=== PATIENT | male | born 1965 | race Caucasian/White ===

== ENCOUNTER 2017-12-28 09:35 | Observation (INO) ==
--- NOTE | 2017-12-28 09:47 | Emergency Department Note ---
Disposition Clinical Impression: Fatigue, Chest pain, Dyspnea, History of atrial fibrillation Disposition: Admitted As Inpatient Condition: Good General Adult HPI - General Chief complaint: ED Chest Pain Stated complaint: CP/SOB Time Seen by Provider: 12/28/17 09:38 - History of Present Illness Pain Scale: 1 - Related Data Home Medications Medication Instructions Recorded Confirmed Albuterol Sulfate [Ventolin Hfa] 2 puff IH Q4-6H PRN 12/28/17 12/28/17 Aspirin [Adult Aspirin] 81 mg PO DAILY 12/28/17 12/28/17 Cetirizine HCl [All Day Allergy] 10 mg PO DAILY 12/28/17 12/28/17 Ezetimibe [Zetia] 10 mg PO DAILY 12/28/17 12/28/17 FLUoxetine HCl [PROzac] 20 mg PO DAILY 12/28/17 12/28/17 Fenofibrate Nanocrystallized 48 mg PO DAILY 12/28/17 12/28/17 [Tricor] Fluticasone Propionate Nasal 1 spr NS DAILY PRN 12/28/17 12/28/17 [Flonase] Insulin Glargine,Hum.rec.anlog 32 unit SQ HS 12/28/17 12/28/17 [Lantus Solostar] Insulin LISPRO [Humalog] 8 unit SQ TIDWM 12/28/17 12/28/17 Losartan [Cozaar] 25 mg PO DAILY 12/28/17 12/28/17 Metformin HCl [Glucophage] 1,000 mg PO BID 12/28/17 12/28/17 Metoprolol Succinate [Toprol Xl] 25 mg PO BID 12/28/17 12/28/17 Omeprazole [PriLOSEC] 20 mg PO DAILY 12/28/17 12/28/17 Propafenone HCl [Rythmol Sr] 225 mg PO BID 12/28/17 12/28/17 RX: Gabapentin [Neurontin] 300 mg PO TID 12/28/17 12/28/17 Allergies Allergy/AdvReac Type Severity Reaction Status Date / Time No Known Allergies Allergy Verified 12/28/17 10:56 Course Vital Signs Temperature 98.5 F 12/28/17 09:37 Pulse Rate 59 12/28/17 09:37 Respiratory Rate 17 12/28/17 09:37 Blood Pressure 219/106 12/28/17 09:37 O2 Sat by Pulse Oximetry 97 12/28/17 09:37 Temperature 98.4 F 12/28/17 14:44 Pulse Rate 58 12/28/17 14:44 Respiratory Rate 15 12/28/17 14:44 Blood Pressure 163/74 12/28/17 14:44 O2 Sat by Pulse Oximetry 97 12/28/17 14:44 Oxygen Delivery Oxygen Delivery Room Air Medical Decision Making - Lab Data Result diagrams: 12/28/17 10:13 12/28/17 11:31 Lab Results 12/28/17 12/28/17 12/28/17 Range/Units 10:13 10:13 10:13 WBC 5.9 (4.3-11.1) K/mcL RBC 4.44 (4.19-5.50) M/mcL Hgb 13.9 (12.9-16.9) g/dL Hct 41.3 (37.5-50.1) % MCV 93.0 (83.0-100.0) fL MCH 31.3 (28.0-33.3) pg MCHC 33.7 (31.6-35.5) g/dL RDW 12.9 (11.5-14.5) % Plt Count 145 (140-400) K/mcL MPV 12.9 H (9.4-12.4) fL Immature Gran % 0.5 (0-4) % Seg Neutrophils % 49.3 % Lymphocytes % 38.4 % Monocytes % 8.2 % Eosinophils % 2.9 % Basophils % 0.7 % Neutrophils # 2.9 (1.6-8.9) K/mcL Lymphocytes # 2.3 (0.6-4.6) K/mcL Monocytes # 0.5 (0.0-1.3) K/mcL Eosinophils # 0.2 (0.0-0.6) K/mcL Basophils # 0.0 (0.0-0.2) K/mcL PT 11.6 (9.4-12.1) Seconds INR 1.0 APTT 28.5 (26.0-36.0) Seconds Sodium Cancelled Potassium Cancelled Chloride Cancelled Carbon Dioxide Cancelled BUN Cancelled Creatinine Cancelled Est GFR ( Amer) Cancelled Est GFR (Non-Af Amer) Cancelled BUN/Creatinine Ratio Cancelled Glucose Cancelled Est Mean Plasma Glucose mg/dl Hemoglobin A1c ( - 5.6) % Calculated Osmolality Cancelled Calcium Cancelled Magnesium Cancelled Total Bilirubin Cancelled AST Cancelled ALT Cancelled Alkaline Phosphatase Cancelled Troponin I < 0.03 (< 0.04) ng/mL B-Natriuretic Peptide (Less than 100) pg/mL Serum Total Protein Cancelled Albumin Cancelled Globulin Cancelled Albumin/Globulin Ratio Cancelled TSH Cancelled Specimen Rejected 12/28/17 12/28/17 12/28/17 Range/Units 10:13 10:13 10:13 WBC (4.3-11.1) K/mcL RBC (4.19-5.50) M/mcL Hgb (12.9-16.9) g/dL Hct (37.5-50.1) % MCV (83.0-100.0) fL MCH (28.0-33.3) pg MCHC (31.6-35.5) g/dL RDW (11.5-14.5) % Plt Count (140-400) K/mcL MPV (9.4-12.4) fL Immature Gran % (0-4) % Seg Neutrophils % % Lymphocytes % % Monocytes % % Eosinophils % % Basophils % % Neutrophils # (1.6-8.9) K/mcL Lymphocytes # (0.6-4.6) K/mcL Monocytes # (0.0-1.3) K/mcL Eosinophils # (0.0-0.6) K/mcL Basophils # (0.0-0.2) K/mcL PT (9.4-12.1) Seconds INR APTT (26.0-36.0) Seconds Sodium Potassium Chloride Carbon Dioxide BUN Creatinine Est GFR ( Amer) Est GFR (Non-Af Amer) BUN/Creatinine Ratio Glucose Est Mean Plasma Glucose 128 mg/dl Hemoglobin A1c 6.1 H ( - 5.6) % Calculated Osmolality Calcium Magnesium Total Bilirubin AST ALT Alkaline Phosphatase Troponin I (< 0.04) ng/mL B-Natriuretic Peptide 286 H (Less than 100) pg/mL Serum Total Protein Albumin Globulin Albumin/Globulin Ratio TSH Specimen Rejected Hemolyzed 12/28/17 Range/Units 11:31 WBC (4.3-11.1) K/mcL RBC (4.19-5.50) M/mcL Hgb (12.9-16.9) g/dL Hct (37.5-50.1) % MCV (83.0-100.0) fL MCH (28.0-33.3) pg MCHC (31.6-35.5) g/dL RDW (11.5-14.5) % Plt Count (140-400) K/mcL MPV (9.4-12.4) fL Immature Gran % (0-4) % Seg Neutrophils % % Lymphocytes % % Monocytes % % Eosinophils % % Basophils % % Neutrophils # (1.6-8.9) K/mcL Lymphocytes # (0.6-4.6) K/mcL Monocytes # (0.0-1.3) K/mcL Eosinophils # (0.0-0.6) K/mcL Basophils # (0.0-0.2) K/mcL PT (9.4-12.1) Seconds INR APTT (26.0-36.0) Seconds Sodium 142 Potassium 4.3 Chloride 111 H Carbon Dioxide 23 BUN 15 Creatinine 1.07 Est GFR ( Amer) > 60 Est GFR (Non-Af Amer) > 60 BUN/Creatinine Ratio 14 Glucose 93 Est Mean Plasma Glucose mg/dl Hemoglobin A1c ( - 5.6) % Calculated Osmolality 295 Calcium 9.3 Magnesium 1.9 Total Bilirubin 0.3 AST 20 ALT 18 Alkaline Phosphatase 64 Troponin I (< 0.04) ng/mL B-Natriuretic Peptide (Less than 100) pg/mL Serum Total Protein 6.0 L Albumin 3.8 Globulin 2.2 L Albumin/Globulin Ratio 1.7 TSH 2.275 Specimen Rejected Attestation Statement - Attestation Attestation: I examined this patient and my medical decision-making was reviewed with the Resident Physician. I agree with the documented findings, disposition and treatment plan as described except to the extent set forth below. [id number] time provided Patient able to ambulate from triage without limitation. He is hypertensive. Otherwise appears in no acute distress. Complaints of intermittent chest discomfort and dyspnea.
--- NOTE | 2017-12-28 09:53 | Emergency Department Note ---
Disposition Clinical Impression: History of atrial fibrillation Fatigue Qualifiers: Fatigue type: unspecified Qualified Code(s): R53.83 - Other fatigue Chest pain Qualifiers: Chest pain type: unspecified Qualified Code(s): R07.9 - Chest pain, unspecified Dyspnea Qualifiers: Dyspnea type: unspecified Qualified Code(s): R06.00 - Dyspnea, unspecified Disposition: Admitted As Inpatient Condition: Good Forms: ED Satisfaction Letter Time of Disposition: 12:21 Chest Pain HPI - General Chief Complaint: ED Chest Pain Stated Complaint: CP/SOB Time Seen by Provider: 12/28/17 09:38 Source: patient Mode of arrival: ambulatory Limitations: no limitations Vital Signs Reviewed: Yes Nursing Notes Reviewed: Yes - History of Present Illness HPI Narrative: Patient is a 52-year-old male with past medical history of hypertension, hyperlipidemia, diabetes, 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 He is currently on metoprolol, losartan, daily baby aspirin, propafenone for rate and rhythm control. He states that he recently moved here from [facility]. He just started following with Dr. Stuart with cardiology. He states that he has a referral and placed to Dr. Jarvis for further A. fib management. He states that he was switched from valsartan to losartan this summer due to recall. He was also increased on his metoprolol on December 14 for further rate control. He states that for the past 4 days, he has felt overall fatigued, he also had chest pain last night that was occurring while he was exerting himself. Lasted for several minutes and then went away. Described as a constant left- sided chest aching with intermittent sharp pains that radiated to his left upper extremity. He also had shortness of breath during that time and continues to have shortness of breath. No additional chest discomfort since the incident last night. Denies any other associated nausea, vomiting, fevers, diarrhea, abdominal pain. 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 He does admit to some mild lower extremity edema but no calf pain, no redness, no long car rides or recent surgeries, no history of PE. Severity scale (1-10): 1 - Related Data Home Medications Medication Instructions Recorded Confirmed Albuterol Sulfate [Ventolin Hfa] 2 puff IH Q4-6H PRN 12/28/17 12/28/17 Aspirin [Adult Aspirin] 81 mg PO DAILY 12/28/17 12/28/17 Cetirizine HCl [All Day Allergy] 10 mg PO DAILY 12/28/17 12/28/17 Ezetimibe [Zetia] 10 mg PO DAILY 12/28/17 12/28/17 FLUoxetine HCl [PROzac] 20 mg PO DAILY 12/28/17 12/28/17 Fenofibrate Nanocrystallized 48 mg PO DAILY 12/28/17 12/28/17 [Tricor] Fluticasone Propionate Nasal 1 spr NS DAILY PRN 12/28/17 12/28/17 [Flonase] Gabapentin [Neurontin] 300 mg PO TID 12/28/17 12/28/17 Insulin Glargine,Hum.rec.anlog 32 unit SQ HS 12/28/17 12/28/17 [Lantus Solostar] Insulin LISPRO [Humalog] 8 unit SQ TIDWM 12/28/17 12/28/17 Losartan [Cozaar] 25 mg PO DAILY 12/28/17 12/28/17 Metformin HCl [Glucophage] 1,000 mg PO BID 12/28/17 12/28/17 Metoprolol Succinate [Toprol Xl] 25 mg PO BID 12/28/17 12/28/17 Omeprazole [PriLOSEC] 20 mg PO DAILY 12/28/17 12/28/17 Propafenone HCl [Rythmol Sr] 225 mg PO BID 12/28/17 12/28/17 Allergies Allergy/AdvReac Type Severity Reaction Status Date / Time No Known Allergies Allergy Verified 12/28/17 10:56 All systems ED: reviewed and negative except as stated. Constitutional: Denies: fever Cardiovascular: Reports: chest pain Respiratory: Reports: dyspnea. Denies: cough, sputum production Gastrointestinal: Denies: abdominal pain, nausea, vomiting, diarrhea Genitourinary: Denies: urgency, dysuria, frequency Integumentary: Denies: rash Neurological: Denies: headache, weakness, numbness, paresthesias Chest Pain PMH - Past Medical History Medical history: Reports: other Physical Exam - General Limitations: no limitations General appearance: alert, in no apparent distress - Head Head exam: atraumatic, normocephalic, normal inspection - Eye Eye exam: Present: normal appearance, PERRL, EOMI - ENT ENT exam: normal exam, normal oropharynx, mucous membranes moist - Neck Neck exam: Present: normal inspection, full ROM, trachea midline - Chest Chest inspection: Present: normal inspection, symmetric chest wall rise - Respiratory Respiratory exam: Present: normal lung sounds bilaterally - Cardiovascular Cardiovascular exam: Present: normal rhythm, bradycardia, normal heart sounds - Abdominal Exam Abdominal exam: Present: soft, Non-Tender. Absent: tenderness, distention, guarding, rebound, rigidity - Extremities Exam Extremities exam: Present: normal inspection, full ROM. Absent: tenderness, pedal edema, calf tenderness - Neurological Exam Neurological exam: Present: alert, oriented X3 - Psychiatric Psychiatric exam: Present: normal affect, normal mood - Skin Skin exam: Present: warm, dry, intact, normal color Course Course Narrative: Patient was in sinus bradycardia on exam. Lungs were clear to auscultation. Abdomen soft and nontender. Extremity exam shows no significant swelling, redness, tenderness of calves or popliteal fossa. Assuming EKG and troponin are normal, patient would have a heart score for her with risk factors and age. We will perform EKG, chest x-ray, basic blood work and troponin. We will repeat blood pressure as patient BP was elevated when he first came in, however, a small cuff was used at triage. After workup was completed, we will consult cardiology. Regardless, patient will require admission for further testing such as stress testing, echo, and possible medication adjustment. Patient has not had a stress test for greater than 1 year, has not had a heart catheter in 2 years ( both at outside facility). Of note, patient does also admit that he had a loop recorder within the past year at an outside facility that did show intermittent episodes of A. fib. This may be contributing to his chest pain or shortness of breath symptoms. 12:19 troponin negative. Chest x-ray negative for any acute cardio pulmonary process. No major abnormalities with blood work. EKG shows no acute ST changes. I spoke with technology director about patient's presentation, history, concern for chest pain or shortness of breath, history of recent labile blood pressures and intermittent episodes of A. fib. No further intervention or medications recommended at this time. Dr. Anaya will see the patient as consult. Will admit to hospitalist for further care. Consult to cardio placed. Chest X-Ray 12/28/17 09:53 IMPRESSION: 1. No active pulmonary disease. D/ / Manuel Blanco MD / Manuel Blanco MD Interpreting Provider: Manuel Blanco MD Vital Signs Temperature 98.5 F 12/28/17 09:37 Pulse Rate 59 12/28/17 09:37 Respiratory Rate 17 12/28/17 09:37 Blood Pressure 219/106 12/28/17 09:37 O2 Sat by Pulse Oximetry 97 12/28/17 09:37 Temperature 98.5 F 12/28/17 09:58 Pulse Rate 58 12/28/17 10:28 Respiratory Rate 20 12/28/17 10:28 Blood Pressure 168/79 12/28/17 10:28 O2 Sat by Pulse Oximetry 97 12/28/17 10:28 Oxygen Delivery Oxygen Delivery Room Air Chest Pain - MDM Narrative Medical decision making narrative: Patient was in sinus bradycardia on exam. Lungs were clear to auscultation. Abdomen soft and nontender. Extremity exam shows no significant swelling, redness, tenderness of calves or popliteal fossa. Assuming EKG and troponin are normal, patient would have a heart score for her with risk factors and age. We will perform EKG, chest x-ray, basic blood work and troponin. We will repeat blood pressure as patient BP was elevated when he first came in, however, a smal l cuff was used at triage. After workup was completed, we will consult cardiology. Regardless, patient will require admission for further testing such as stress testing, echo, and possible medication adjustment. Patient has not had a stress test for greater than 1 year, has not had a heart catheter in 2 years ( both at outside facility). Of note, patient does also admit that he had a loop recorder within the past year at an outside facility that did show intermittent episodes of A. fib. This may be contributing to his chest pain or shortness of breath symptoms. 12:19 troponin negative. Chest x-ray negative for any acute cardio pulmonary process. No major abnormalities with blood work. EKG shows no acute ST changes. I spoke with technology director about patient's presentation, history, concern for chest pain or shortness of breath, history of recent labile blood pressures and intermittent episodes of A. fib. No further intervention or medications recommended at this time. Dr. Anaya will see the patient as consult. Will admit to hospitalist for further care. Consult to cardio placed. - Medical Records Medical records reviewed: Yes I reviewed the patient's medical records. - Lab Data Lab results reviewed: Yes I reviewed the patient's lab results. Result diagrams: 12/28/17 10:13 12/28/17 11:31 Lab Results 12/28/17 12/28/17 12/28/17 Range/Units 10:13 10:13 10:13 WBC 5.9 (4.3-11.1) K/mcL RBC 4.44 (4.19-5.50) M/mcL Hgb 13.9 (12.9-16.9) g/dL Hct 41.3 (37.5-50.1) % MCV 93.0 (83.0-100.0) fL MCH 31.3 (28.0-33.3) pg MCHC 33.7 (31.6-35.5) g/dL RDW 12.9 (11.5-14.5) % Plt Count 145 (140-400) K/mcL MPV 12.9 H (9.4-12.4) fL Immature Gran % 0.5 (0-4) % Seg Neutrophils % 49.3 % Lymphocytes % 38.4 % Monocytes % 8.2 % Eosinophils % 2.9 % Basophils % 0.7 % Neutrophils # 2.9 (1.6-8.9) K/mcL Lymphocytes # 2.3 (0.6-4.6) K/mcL Monocytes # 0.5 (0.0-1.3) K/mcL Eosinophils # 0.2 (0.0-0.6) K/mcL Basophils # 0.0 (0.0-0.2) K/mcL PT 11.6 (9.4-12.1) Seconds INR 1.0 APTT 28.5 (26.0-36.0) Seconds Sodium Cancelled Potassium Cancelled Chloride Cancelled Carbon Dioxide Cancelled BUN Cancelled Creatinine Cancelled Est GFR ( Amer) Cancelled Est GFR (Non-Af Amer) Cancelled BUN/Creatinine Ratio Cancelled Glucose Cancelled Est Mean Plasma Glucose mg/dl Hemoglobin A1c ( - 5.6) % Calculated Osmolality Cancelled Calcium Cancelled Magnesium Cancelled Total Bilirubin Cancelled AST Cancelled ALT Cancelled Alkaline Phosphatase Cancelled Troponin I < 0.03 (< 0.04) ng/mL Serum Total Protein Cancelled Albumin Cancelled Globulin Cancelled Albumin/Globulin Ratio Cancelled TSH Cancelled Specimen Rejected 12/28/17 12/28/17 12/28/17 Range/Units 10:13 10:13 11:31 WBC (4.3-11.1) K/mcL RBC (4.19-5.50) M/mcL Hgb (12.9-16.9) g/dL Hct (37.5-50.1) % MCV (83.0-100.0) fL MCH (28.0-33.3) pg MCHC (31.6-35.5) g/dL RDW (11.5-14.5) % Plt Count (140-400) K/mcL MPV (9.4-12.4) fL Immature Gran % (0-4) % Seg Neutrophils % % Lymphocytes % % Monocytes % % Eosinophils % % Basophils % % Neutrophils # (1.6-8.9) K/mcL Lymphocytes # (0.6-4.6) K/mcL Monocytes # (0.0-1.3) K/mcL Eosinophils # (0.0-0.6) K/mcL Basophils # (0.0-0.2) K/mcL PT (9.4-12.1) Seconds INR APTT (26.0-36.0) Seconds Sodium 142 Potassium 4.3 Chloride 111 H Carbon Dioxide 23 BUN 15 Creatinine 1.07 Est GFR ( Amer) > 60 Est GFR (Non-Af Amer) > 60 BUN/Creatinine Ratio 14 Glucose 93 Est Mean Plasma Glucose 128 mg/dl Hemoglobin A1c 6.1 H ( - 5.6) % Calculated Osmolality 295 Calcium 9.3 Magnesium 1.9 Total Bilirubin 0.3 AST 20 ALT 18 Alkaline Phosphatase 64 Troponin I (< 0.04) ng/mL Serum Total Protein 6.0 L Albumin 3.8 Globulin 2.2 L Albumin/Globulin Ratio 1.7 TSH Specimen Rejected Hemolyzed - Radiology Data Radiology results reviewed: Yes I reviewed the patient's radiology results. - EKG Data EKG attestation: Yes I reviewed and interpreted this EKG. EKG results narrative: 12/29/19 1809:57. Sinus bradycardia. Rate 59. UT 154. QRS 108. QTC 433. No acute ST elevation or depression. Bundle-branch block present in V1, V2. This is present on old EKG on 05/31/2000. Heart Score - Score History: Moderately Suspicious EKG: Normal Age: 45-65 Risk Factors: Equal/Greater than 3 risk factor or history of atherosclerotic disease Troponin: Less than normal limit HEART Score Total: 4 S.B.A.R. - S.B.A.R. Situation: Demographics, MOA Background: Presenting Complaint, Relevant PMH, Meds, & Allergies Assessment: Vital Signs, Course and respsone to treatment, Exam Concerns, Carolin ent/Family Expectation, Pertinant Lab Results Recommendation: Barrier(s) to disposition, Recommendation based on pending studies, treatments, or consults S.B.A.R. Report Given to: Dr. Smith
[2017-12-28] MEDS ORDERED: Aspirin 325 MG TABLET PO ONE (10:08)
[2017-12-28 10:33] LABS: Basophils % 0.7 %; Eosinophils # 0.2 K/mcL (0.0-0.6); Eosinophils % 2.9 %; Hematocrit 41.3 % (37.5-50.1); Hemoglobin 13.9 g/dL (12.9-16.9); Immature Granulocytes % 0.5 % (0-4); Lymphocytes # 2.3 K/mcL (0.6-4.6); Lymphocytes % 38.4 %; Mean Corpuscular HGB Conc 33.7 g/dL (31.6-35.5); Mean Corpuscular Hemoglobin 31.3 pg (28.0-33.3); Mean Platelet Volume 12.9 fL (9.4-12.4); Monocytes # 0.5 K/mcL (0.0-1.3); Monocytes % 8.2 %; Neutrophils # 2.9 K/mcL (1.6-8.9); Platelet Count 145 K/mcL (140-400); Red Blood Count 4.44 M/mcL (4.19-5.50); Red Cell Distribution Width 12.9 % (11.5-14.5); Segmented Neutrophils % 49.3 %
[2017-12-28 10:42] LABS: Prothrombin Time 11.6 Seconds (9.4-12.1)
[2017-12-28 10:45] LABS: Activated Partial Thrombo Time 28.5 Seconds (26.0-36.0)
--- NOTE | 2017-12-28 11:01 | Internal Med History&Physical ---
Date of Encounter: 12/28/17 Time of Encounter: 10:54 Internal Medicine - H&P: HPI Chief complaint: chest pain Admitted From: Home Plans for Post Hospital Care: Home History of present illness: Mr. Navarrete is a 52 year old male with history of hypertension, hyperlipidemia, diabetes, atrial fibrillation not on anticoagulation and cardiac myxoma status post resection 2 years ago presented to the emergency department with chest pain. He reports that for the past few months he has had on and off chest pain that lasts for a few seconds and go away by itself. Pain has been becoming more frequent as the days go on last episode was the day before admission he reports that is a left-sided chest pain, nonradiating, pressure-like and sharp in nature that occurs both at rest and on ambulation. He had 3 episodes of chest pain that lasted a few seconds the day before admission. His chest pain is also associated with on and off episodes of shortness of breath. he denies fever, chills, cough, recent upper respiratory tract infections, palpitations, leg edema, calf tenderness, PND or orthopnea. He cannot recall alleviating or aggravating factors. he recently moved here from [place] and most of his procedures were performed in [place]. Due to his extensive cardiac history he started following doctors Adam with [facility] who increased his metoprolol on December 14 for further rate control and blood pressure control. He was referred to Dr. Jarvis for further management but has not had that appointment with Dr. Jarvis yet. He does report that he used to be on per Doxil for atrial fibrillation however it was stopped secondary to headaches, he denies any bleeding while on blood thinners. He does report history of DVT which was unprovoked and was on thinners for a few years but has not been prescribed any anticoagulation and is only taking aspirin daily. He had left heart catheter prior to his myxoma resection surgery and reports that his study was negative. He also reports a stress test which was performed more than a year ago which was also negative. These tests were performed in [place]. While in the emergency department EKG did not show any significant ST-T changes, troponin was negative, heart score was 4 so he was endorsed for further evaluation of his chest pain. Past Med Surg Social Fam HX - Past Medical History Medical history: other Additional medical history: benign tumor removed from heart Psychiatric history: anxiety, bipolar, depression - Past Surgical History Additional surgical history: benign tumor removed from heart. LOOP recorder - Social History Smoking Status: Current every day smoker Smokeless Tobacco Status: Yes Alcohol use: none Drug use: marijuana Internal Medicine - H&P: Meds Albuterol Sulfate [Ventolin Hfa] 2 puff IH Q4-6H PRN 12/28/17 [History] Aspirin [Adult Aspirin] 81 mg PO DAILY 12/28/17 [History] Cetirizine HCl [All Day Allergy] 10 mg PO DAILY 12/28/17 [History] Ezetimibe [Zetia] 10 mg PO DAILY 12/28/17 [History] FLUoxetine HCl [PROzac] 20 mg PO DAILY 12/28/17 [History] Fenofibrate Nanocrystallized [Tricor] 48 mg PO DAILY 12/28/17 [History] Fluticasone Propionate Nasal [Flonase] 1 spr NS DAILY PRN 12/28/17 [History] Gabapentin [Neurontin] 300 mg PO TID 12/28/17 [History] Insulin Glargine,Hum.rec.anlog [Lantus Solostar] 32 unit SQ HS 12/28/17 [History] Insulin LISPRO [Humalog] 8 unit SQ TIDWM 12/28/17 [History] Losartan [Cozaar] 25 mg PO DAILY 12/28/17 [History] Metformin HCl [Glucophage] 1,000 mg PO BID 12/28/17 [History] Metoprolol Succinate [Toprol Xl] 25 mg PO BID 12/28/17 [History] Omeprazole [PriLOSEC] 20 mg PO DAILY 12/28/17 [History] Propafenone HCl [Rythmol Sr] 225 mg PO BID 12/28/17 [History] Allergy/AdvReac Type Severity Reaction Status Date / Time No Known Allergies Allergy Verified 12/28/17 10:56 All Systems PM: review of systems was performed and is negative for pertinent findings except as documented above in the HPI. - Constitutional Vitals: Temp Pulse Resp BP Pulse Ox 98.5 F 58 20 168/79 97 12/28/17 09:58 12/28/17 10:28 12/28/17 10:28 12/28/17 10:28 12/28/17 10:28 Exam: General: Patient is alert, oriented, no acute distress, obese Head: atraumatic, normocephalic, Eye: normal appearance, PERRL, no scleral icterus, no conjunctival injection ENT: mucous membranes moist, normal external ear exam Neck: normal inspection, trachea midline, full ROM, no carotid bruits Chest: normal inspection, symmetric chest rise, well-healed midsternal scar Respiratory: Good respiratory effort. Bilateral breath sounds are clear without wheezing, crackles, or rhonchi. Cardiovascular: Regular rate and rhythm. s1 and s2 No clicks, rubs, gallops, or murmors. Abdomen: Bowel sounds present normoactive x-4 quadrants. Abdomen is soft, nondistended. no Epigastric tenderness. No guarding or rebound. No organomegaly noted, obese musculoskeletal: Spontaneously moving all extremities. no edema, no calf tenderness Skin: warm, dry, intact. Neuro: Alert and oriented x4. Sensation light touch intact. Cranial nerves 2- 12 is intact. Not aphasic, no focal deficit Psych: Patient's affect is normal Internal Med - H&P Results - Labs CBC & Chem 7: 12/28/17 10:13 12/28/17 10:13 Labs: Short CBC 12/28/17 Range/Units 10:13 WBC 5.9 (4.3-11.1) K/mcL Hgb 13.9 (12.9-16.9) g/dL Hct 41.3 (37.5-50.1) % Plt Count 145 (140-400) K/mcL Neutrophils # 2.9 (1.6-8.9) K/mcL - EKG Data -: EKG Interpreted by Myself (Normal sinus rhythm QT 433) - EKG Data Prior EKG available for review: yes When compared to previous EKG: there is no significant change - Impressions ITS Impressions Chest X-Ray 12/28/17 09:53 IMPRESSION: 1. No active pulmonary disease. D/ / Manuel Blanco MD / Manuel Blanco MD Interpreting Provider: Manuel Blanco MD - Assessment and plan (1) Chest pain Current Visit: Yes Status: Acute Assessment and plan: Chest pain rule out ACS KIKE score 3 Cardiac monitoring First troponin negative follow the next 1 along with EKG in 6 hours Was loaded with aspirin 325 in the ED Continue aspirin 81 mg daily Cardiology consulted in the emergency department will follow recommendations Continue beta leigh, cholesterol medications, MARLEN/ARB Echocardiogram STAT Nothing by mouth for possible cardiology intervention (?stress test vs cath) Nitroglycerin sublingual every 5 minutes he PRN for chest pain U tox, lipid panel, TSH 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 No active pulmonary disease. (2) History of atrial fibrillation Current Visit: Yes Status: Acute Assessment and plan: Paroxysmal atrial fibrillation chads vasc score (2 - history of DM,HTN) Reports that he was previously on per DEXA however it was stopped secondary to headaches Cardiology was consulted will defer anticoagulation recommendations to cardiology team Currently in sinus rhythm (3) Hypertension Current Visit: Yes Status: Acute Assessment and plan: Continue home medications if not contraindicated Vital signs as per protocol Qualifiers: Hypertension type: essential hypertension Qualified Code(s): I10 - Essential (primary) hypertension (4) Hyperlipidemia Current Visit: Yes Status: Acute Assessment and plan: Lipid Panel in a.m. Continue home cholesterol medications Qualifiers: Hyperlipidemia type: unspecified Qualified Code(s): E78.5 - Hyperlipidemia, unspecified (5) Diabetes Current Visit: Yes Status: Acute Assessment and plan: continue home dose long acting insulin and cover with sliding scale - adjust as per finger sticks A1c in AM Qualifiers: Diabetes mellitus type: type 2 Diabetes mellitus alf insulin use: with alf use Diabetes mellitus complication status: without complication Qualified Code(s): E11.9 - Type 2 diabetes mellitus without complications; Z79.4 - terminal operations manager (current) use of insulin (6) Obesity (BMI 30-39.9) Current Visit: Yes Status: Acute Assessment and plan: Was counseled Consider nutrition consult (7) Current every day smoker Current Visit: Yes Status: Acute Assessment and plan: Was counseled (8) DVT prophylaxis Current Visit: Yes Status: Acute Assessment and plan: Heparin subcutaneous - Time Spent With Patient Total time spent is greater than 50% in coordination of care (as documented) at patient's floor/unit and/or counseling patient:
[2017-12-28] MEDS ORDERED: Fluticasone Propionate Nasal 50 MCG/SPRAY BOTTLE NS PRN (11:09)
[2017-12-28] MEDS ORDERED: Dextrose Gel 15 GM/37.5 ML TUBE PO PRN ×2 (11:20)
[2017-12-28] MEDS ORDERED: *HR* Dextrose 50 % in Water (Syg) 50 ML SYRINGE IVP PRN (11:20)
[2017-12-28] MEDS ORDERED: D5% in Water 1,000 ML IVC PRN (11:20)
[2017-12-28] MEDS ORDERED: Nitroglycerin 0.4 MG TAB.SUBL SL PRN (11:24)
[2017-12-28] MEDS ORDERED: 0.9 % Sodium Chloride 1,000 ML IVC SCH (11:30)
[2017-12-28 11:56] LABS: Estimated Average Glucose 128 mg/dl; Hemoglobin A1C 6.1 %
[2017-12-28 12:11] LABS: Alanine Aminotransferase 18 Units/L (7-52); Albumin 3.8 g/dL (3.5-5.7); Albumin/Globulin Ratio 1.7 (1.1-2.2); Alkaline Phosphatase 64 Units/L (34-104); Aspartate Amino Transferase 20 Units/L (13-39); BUN/Creatinine Ratio 14 (6-26); Bilirubin,Total 0.3 mg/dL (0.3-1.0); Blood Urea Nitrogen 15 mg/dL (6-20); Calcium 9.3 mg/dL (8.6-10.3); Carbon Dioxide 23 mEq/L (23-29); Chloride 111 mEq/L (98-107); Globulin 2.2 g/dL (2.4-3.5); Glucose 93 mg/dL (70-105); Magnesium 1.9 mg/dL (1.6-2.6); Osmolality,Calculated 295 (280-300); Potassium 4.3 mEq/L (3.5-5.1); Sodium 142 mEq/L (136-145); eGFR For Non-African Americans > 60 (> 60)
[2017-12-28 12:23] LABS: Thyroid Stimulating Hormone 2.275 mcIU/mL (0.340-5.600)
[2017-12-28] MEDS ORDERED: Naloxone 0.4 MG/ML INJ IVP PRN (12:32)
[2017-12-28] MEDS: Insulin LISPRO 300 UNITS/3 ML VIAL SQ SCH ×2 (14:51→17:28)
[2017-12-28] MEDS: *HR* Heparin 5,000 UNIT/ML VIAL SQ SCH ×2 (16:08→20:29)
[2017-12-28 16:58] LABS: Bilirubin,Urine Negative (Negative); Blood,Urine Negative (Negative); Clarity,Urine Clear (Clear); Color,Urine Yellow (Yellow); Glucose,Urine (UA) Normal (Normal); Ketones,Urine Negative (Negative); Leukocyte Esterase,Urine Negative (Negative); Nitrite,Urine Negative (Negative); PH,Urine 6.5 pH Units (5.0-8.0); Protein,Urine Negative (Neg-Trace); Specific Gravity,Urine 1.011 (1.010-1.025); Urobilinogen,Urine Normal (Normal)
[2017-12-28 17:26] LABS: Amphetamine Screen,Urine Negative ng/mL (Cutoff=1000); Barbiturate Screen,Urine Negative ng/mL (Cutoff=200); Benzodiazepines Screen,Urine Negative ng/mL (Cutoff=200); Cannabinoid Screen,Urine Positive ng/mL (Cutoff = 50); Cocaine Screen,Urine Negative ng/mL (Cutoff= 300); Opiate Screen,Urine Negative ng/mL (Cutoff=300); Phencyclidine Screen,Urine Negative ng/mL (Cutoff=25)
[2017-12-28] MEDS: Metoprolol XL (24 HR) Succ 25 MG TAB.ER.24H PO SCH (20:27)
[2017-12-28] MEDS ORDERED: Insulin LISPRO 300 UNITS/3 ML VIAL SQ SCH (21:00)
[2017-12-28] MEDS ORDERED: Insulin DETEMIR 100 UNIT/ML X5UNITS SQ SCH (21:00)
--- NOTE | 2017-12-28 21:13 | Electrocardiograph Report ---
[place] Test Date: 2017-12-28 Pat Name: Bola Navarrete Department: [id number] Room: 3B49 Gender: M Asphalt Plant Laborer: : 1965 Requested By: Rip Villa Order Number: [id number] Reading MD: Mark Fallon Measurements Intervals [place] Rate: 59 P: 24 NM: 154 QRS: 47 QRSD: 108 T: 62 QT: 437 QTc: 433 Interpretive Statements Sinus rhythm Baseline wander in lead(s) II aVF Electronically Signed On 12-28-2017 21:11:27 EST by Mark Fallon
[2017-12-28] MEDS ORDERED: Perflutren Lipid Microsphere 1.3 ML in 0.9 % Sodium Chloride 8.7 ML IVP ONE (21:21)
[2017-12-28] MEDS ORDERED: Perflutren Lipid Microsphere 2 ML VIAL ONE (21:27)
[2017-12-28] MEDS: Gabapentin 300 MG CAPSULE PO SCH (22:01)
[2017-12-29] MEDS: *HR* Heparin 5,000 UNIT/ML VIAL SQ SCH ×2 (04:52→13:41)
[2017-12-29 06:15] LABS: Basophils % 0.6 %; Eosinophils # 0.2 K/mcL (0.0-0.6); Eosinophils % 3.2 %; Hematocrit 40.9 % (37.5-50.1); Immature Granulocytes % 0.2 % (0-4); Lymphocytes # 1.9 K/mcL (0.6-4.6); Lymphocytes % 36.2 %; Mean Corpuscular HGB Conc 34.2 g/dL (31.6-35.5); Mean Corpuscular Hemoglobin 31.5 pg (28.0-33.3); Mean Corpuscular Volume 91.9 fL (83.0-100.0); Mean Platelet Volume 12.6 fL (9.4-12.4); Monocytes # 0.4 K/mcL (0.0-1.3); Monocytes % 7.9 %; Neutrophils # 2.8 K/mcL (1.6-8.9); Platelet Count 132 K/mcL (140-400); Red Blood Count 4.45 M/mcL (4.19-5.50); Red Cell Distribution Width 13.1 % (11.5-14.5); Segmented Neutrophils % 51.9 %
[2017-12-29 06:37] LABS: BUN/Creatinine Ratio 12 (6-26); Blood Urea Nitrogen 15 mg/dL (6-20); Calcium 9.4 mg/dL (8.6-10.3); Carbon Dioxide 26 mEq/L (23-29); Chloride 110 mEq/L (98-107); Chol/HDL Ratio 3.6 (0-4.9); Cholesterol 139 mg/dL (< 200); Glucose 110 mg/dL (70-105); HDL Cholesterol 39 mg/dL (40-59); LDL Cholesterol,Calculated 83 mg/dL (0-99); Osmolality,Calculated 297 (280-300); Potassium 4.5 mEq/L (3.5-5.1); Sodium 143 mEq/L (136-145); Triglycerides 86 mg/dL (< 150); eGFR For Non-African Americans > 60 (> 60)
[2017-12-29] MEDS: Insulin LISPRO 300 UNITS/3 ML VIAL SQ SCH ×2 (08:14→11:58)
[2017-12-29] MEDS ORDERED: FLUoxetine 20 MG CAPSULE PO SCH (09:00)
[2017-12-29] MEDS ORDERED: (Ezetimibe [Zetia] 10 MG) PO SCH (09:00)
[2017-12-29] MEDS ORDERED: Aspirin 81 MG TAB.CHEW PO SCH (09:00)
[2017-12-29] MEDS ORDERED: Fenofibrate 54 MG TABLET PO SCH (09:00)
[2017-12-29] MEDS ORDERED: Loratadine 10 MG TABLET PO SCH (09:00)
[2017-12-29] MEDS: Gabapentin 300 MG CAPSULE PO SCH (11:05)
[2017-12-29] MEDS: Metoprolol XL (24 HR) Succ 25 MG TAB.ER.24H PO SCH (11:05)
[2017-12-29 11:23] VITALS: BP 158/91
--- NOTE | 2017-12-29 13:22 | Cardiology Consult Note ---
<Michael Kumari - Last Filed: 12/29/17 13:15> Date of Encounter: 12/29/17 Time of Encounter: 13:15 Assessment and Plan (1) Chest pain Current Visit: Yes Status: Acute 52 YO M with history of HTN, DM, Afib not on aoag, and cardiac myoxma s/p re section here for CP. Patient had neg cardiac cath 2 years ago, negative ECG, echo with normal EF and no wall motion abnormalities. He does have episodes of HTN presenting with 219/106. Patient most likely have noncardiac chest pain. Will manage medically. Cardiology will follow up with patient tomorrow. - Increased Prilosec to 40 mg from 20 mg before eating - increase losartan to 50 mg from 25 mg Qualifiers: Chest pain type: unspecified Qualified Code(s): R07.9 - Chest pain, unspecified (2) Afib Current Visit: Yes Status: Acute Based on telemetry patient currently not in afib. Qualifiers: Qualified Code(s): I48.91 - Unspecified atrial fibrillation (3) HTN (hypertension) Current Visit: Yes Status: Acute Patient still hypertensive at 160/90 today. Will double losartan from 25 to 50mg Qualifiers: Qualified Code(s): I10 - Essential (primary) hypertension Discussion w patient/family: The assessment and plan as outlined above was discussed with the patient and/or family members who expressed understanding and agreement. All questions were answered. Thank you for involving us in the care of your patient. Please call with any questions. History of Present Illness Consult date: 12/29/17 Consult reason: CP Chief complaint: Chest pain History of present illness: Mr. Navarrete is a 52 year old male with history of HTN, DM, not on anticaog, cardiac myxoma s/p resection 2 years ago. - Patient reports that he starting have CP and SOB yesterday after cutting wood. He had 3 episodes lasting a few seconds. Pain rated 2/10, occurs at rest and moving, radiating to left arm. Patient notes these episodes of CP have been occurring for past few months with increasing frequency and severity. He states feels different than his episodes of afib. - Patient is currently asymptomatic. - Patient recently started smoking less than 1/2 PPD after stopping 3 years ago. Before stopping he smoked 3 PPD for 35 years. - Labs done at current visit show 2 negative trops EKG with sinus rhythm echo with EF 65-70% with no wall motion abnormalities. - He recently had a cardiac cath 2 years ago which was negative for pathology. He recently moved here from [place] and started seeing Dr. Stuart on 12/14. Scheduled to see Dr. Jarvis in January for med recs for afib. Telemetry today shows patient not in afib. Past Med Surg Social Fam HX - Past Medical History Medical history: atrial fibrillation, coronary artery disease, DVT, diabetes, hyperlipidemia, hypertension, renal disease, other Additional medical history: benign tumor removed from heart Psychiatric history: anxiety, bipolar, depression - Past Surgical History Additional surgical history: benign tumor removed from heart. LOOP recorder - Social History Smoking Status: Current every day smoker Packs per day: 1 Smokeless Tobacco Status: Yes Alcohol use: none Drug use: marijuana Medications and Allergies Albuterol Sulfate [Ventolin Hfa] 2 puff IH Q4-6H PRN 12/28/17 [History] Aspirin [Adult Aspirin] 81 mg PO DAILY 12/28/17 [History] Cetirizine HCl [All Day Allergy] 10 mg PO DAILY 12/28/17 [History] Ezetimibe [Zetia] 10 mg PO DAILY 12/28/17 [History] FLUoxetine HCl [Prozac] 20 mg PO DAILY 12/28/17 [History] Fenofibrate Nanocrystallized [Tricor] 48 mg PO DAILY 12/28/17 [History] Fluticasone Propionate Nasal [Flonase] 1 spr NS DAILY PRN 12/28/17 [History] Gabapentin [Neurontin] 300 mg PO TID 12/28/17 [History] Insulin Glargine,Hum.rec.anlog [Lantus Solostar] 32 unit SQ HS 12/28/17 [History] Insulin LISPRO [Humalog] 8 unit SQ TIDWM 12/28/17 [History] Metformin HCl [Glucophage] 1,000 mg PO BID 12/28/17 [History] Metoprolol Succinate [Toprol Xl] 25 mg PO BID 12/28/17 [History] Propafenone HCl [Rythmol Sr] 225 mg PO BID 12/28/17 [History] Losartan Potassium [Cozaar] 100 mg PO DAILY #30 tab 12/29/17 [Rx] Omeprazole [PriLOSEC] 40 mg PO DAILY #30 cap 12/29/17 [Rx] Allergy/AdvReac Type Severity Reaction Status Date / Time No Known Allergies Allergy Verified 12/28/17 10:56 All Systems Review: The remainder of the systems were reviewed and are negative - Constitutional Constitutional: no anorexia, no chills, no fatigue, no fever(s), no headache(s), no malaise, no night sweats - Cardiovascular Cardiovascular: as per HPI Physical Examination Vital Signs, Last 4 Hours Temp Pulse Resp BP Pulse Ox 12/29/17 11:22 98.1 F 54 15 158/91 96 General: Conversant, No Apparent Distress HEENT: Atraumatic, Normocephaly Neck: No JVD, Normal carotid pulses Cardiac: Reg Rate and Rhythm, Normal S1 and S2, No Murmur Lungs: Normal Breath Sounds, No Wheeze, Rales, Rhonchi Neuro: Alert and responsive, No focal deficits noted Abdomen: Soft, Non-Tender Skin: No rashes noted on visualized skin Extremities: No Clubbing, No Cyanosis, No Edema, Normal Pulses Results 12/29/17 05:38 12/29/17 05:38 Lab Results 12/28/17 12/28/17 12/29/17 10:13 15:36 05:38 WBC 5.3 Hgb 14.0 Hct 40.9 Plt Count 132 L Sodium Potassium Chloride Carbon Dioxide BUN Creatinine Glucose Calcium Troponin I < 0.03 B-Natriuretic Peptide 286 H 12/29/17 05:38 WBC Hgb Hct Plt Count Sodium 143 Potassium 4.5 Chloride 110 H Carbon Dioxide 26 BUN 15 Creatinine 1.23 Glucose 110 H Calcium 9.4 Troponin I B-Natriuretic Peptide - Imaging and Cardiology Echo: report reviewed (EF 65-70%, mildly dilated LA, mild tricupsid regurg) - EKG Interpretation EKG results cardiology: personally reviewed, normal ECG, sinus rhythm, no diagnostic ischemia Consult Discharge Plan - Plan Referrals: Geeta Aburto CNP [Primary Care Provider] - (Your appointment has been requested) Diego Jarvis MD [Partnered Physician] - Prescriptions: Losartan Potassium [Cozaar] 100 mg PO DAILY #30 tab Omeprazole [PriLOSEC] 40 mg PO DAILY #30 cap <Socorro Stuart - Last Filed: 12/29/17 15:09> Date of Encounter: 12/29/17 - Attending Attestation I examined this patient and my medical decision-making was reviewed with the Resident Physician. I agree with the documented findings, disposition and treatment plan as described. Mr. Navarrete is known to me from the outpatient setting. Recently established care after moving back from [place]. Presents this visit with chest pain, atypical now resolved. VS reviewed - hemodynamically stable. AAOx3, NAD, chest pain free, no new cardiac murmurs, trivial BLE edema Troponins negative No acute ECG findings LVEF normal Impression: 1. Chest pain: ACS ruled out. Had [facility] 2015 normal coronaries. Stress test March 2017 demonstrated no ischemia but with hypertensive BP response. Etiology may be secondary to uncontrolled HTN. Would like his LOOP recorder interrogated as well. Will increase PPI to 40mg daily. He is presently chest pain free. 2. PAF: Reports having breakthrough episodes of AF. However, AF is not found on telemetry during his stay. He has been asymptomatic. Recommend device interrogation. He has an upcoming OV with EP 01/25/2018. He is not on anticoagulation for unclear reasons. He was established with EP in [place]. Will try to obtain records for outpatient follow up. Continue aspirin for now. 3. HTN: Recommend increasing losartan to 50mg daily. BP checks at home. Assessment and Plan Discussion w patient/family: The assessment and plan as outlined above was discussed with the patient and/or family members who expressed understanding and agreement. All questions were answered. Thank you for involving us in the care of your patient. Please call with any questions. History of Present Illness History of present illness: Mr. Navarrete is a 52 year old male All Systems Review: The remainder of the systems were reviewed and are negative Physical Examination Vital Signs, Last 4 Hours Temp Pulse Resp BP Pulse Ox 12/29/17 11:22 98.1 F 54 15 158/91 96 Results 12/29/17 05:38 12/29/17 05:38 Lab Results 12/28/17 12/29/17 12/29/17 15:36 05:38 05:38 WBC 5.3 Hgb 14.0 Hct 40.9 Plt Count 132 L Sodium 143 Potassium 4.5 Chloride 110 H Carbon Dioxide 26 BUN 15 Creatinine 1.23 Glucose 110 H Calcium 9.4 Troponin I < 0.03
--- NOTE | 2017-12-29 14:05 | Discharge Summary ---
- NOTES TO OUTPATIENT PROVIDER Notes to Outpatient Provider: Follow with PCP in one week. follow-up with cardiology in one week. Increased your blood pressure medication losartan to 100 mg PO Daily. also increase your acid reflux medication Prilosec to 40 mg daily Orders not resulted at time of discharge: Pending orders 12/28/17 16:00 EKG [ECG 12 lead ECG] [ECG] Routine Date of Encounter: 12/29/17 Time of Encounter: 14:03 - Discharge Diagnosis (1) Chest pain Priority: Primary Status: Acute (2) History of atrial fibrillation Priority: Secondary Status: Acute (3) Hypertension Priority: Secondary Status: Acute Qualifiers: Hypertension type: essential hypertension Qualified Code(s): I10 - Essential (primary) hypertension (4) Hyperlipidemia Priority: Secondary Status: Acute Qualifiers: Hyperlipidemia type: unspecified Qualified Code(s): E78.5 - Hyperlipidemia, unspecified (5) Diabetes Priority: Secondary Status: Acute Qualifiers: Diabetes mellitus type: type 2 Diabetes mellitus assisted insulin use: with watermaster use Diabetes mellitus complication status: without complication Qualified Code(s): E11.9 - Type 2 diabetes mellitus without complications; Z79.4 - watermaster (current) use of insulin (6) Obesity (BMI 30-39.9) Priority: Secondary Status: Acute (7) DVT prophylaxis Priority: Secondary Status: Acute (8) Current every day smoker Priority: Secondary Status: Acute Hospital course: Mr. Navarrete is a 52 year old male with history of hypertension, hyperlipidemia, diabetes, paroxysmal atrial fibrillation not on anticoagulation and cardiac myxoma status post resection 2 years ago presented to the emergency department with chest pain. He reports that for the past few months he has had on and off chest pain that lasts for a few seconds and go away by itself. Pain has been becoming more frequent as the days go on last episode was the day before admission he reports that is a left-sided chest pain, non radiating, pressure- like and sharp in nature that occurs both at rest and on ambulation. He recently moved here from [place], [place] and most of his procedures were performed in [place]. Now he established his care with the varnisher Dr. Stuart who had seen in him 2 weeks ago and referred him to our electrophysiology varnisher Dr. Jarvis. 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 His serial troponin times 3 came back is negative. His EKG did not show any acute ischemic changes. As per varnisher had a negative cardiac catheterization ago, normal stress test in March 2017 and current echocardiogram showed preserved LVEF with indeterminate diastolic function and without any wall motion abnormalities. He did have significantly elevated blood pressure, so we increased his Cozaar to 100 mg PO daily. He remained chest pain free. With recent normal stress test cardiology recommend to get his blood pressure under control and have him follow-up with cardiology as an outpatient. So will discharge him home in a stable condition today with increased BP meds. - Time Spent with Patient Total time spent providing and/or coordinating discharge services: - Discharge Medications Home Medications: Albuterol Sulfate [Ventolin Hfa] 2 puff IH Q4-6H PRN 12/28/17 [History] Aspirin [Adult Aspirin] 81 mg PO DAILY 12/28/17 [History] Cetirizine HCl [All Day Allergy] 10 mg PO DAILY 12/28/17 [History] Ezetimibe [Zetia] 10 mg PO DAILY 12/28/17 [History] FLUoxetine HCl [PROzac] 20 mg PO DAILY 12/28/17 [History] Fenofibrate Nanocrystallized [Tricor] 48 mg PO DAILY 12/28/17 [History] Fluticasone Propionate Nasal [Flonase] 1 spr NS DAILY PRN 12/28/17 [History] Gabapentin [Neurontin] 300 mg PO TID 12/28/17 [History] Insulin Glargine,Hum.rec.anlog [Lantus Solostar] 32 unit SQ HS 12/28/17 [History] Insulin LISPRO [Humalog] 8 unit SQ TIDWM 12/28/17 [History] Losartan [Cozaar] 25 mg PO DAILY 12/28/17 [History] Metformin HCl [Glucophage] 1,000 mg PO BID 12/28/17 [History] Metoprolol Succinate [Toprol Xl] 25 mg PO BID 12/28/17 [History] Omeprazole [PriLOSEC] 20 mg PO DAILY 12/28/17 [History] Propafenone HCl [Rythmol Sr] 225 mg PO BID 12/28/17 [History] Allergies/Adverse Reactions: Allergy/AdvReac Type Severity Reaction Status Date / Time No Known Allergies Allergy Verified 12/28/17 10:56 Date of admission: 12/28/17 12:41 Primary care physician: Geeta Aburto, Consults: 12/28/17 12:17 Consult to Cardiology [CONS] Stat Comment: Consulting Provider: Cardiology Rula Reason for Consult: hx of myxoma, a fib, on rate control and propafenone, labile BPs Call Completed: Yes - Constitutional Vitals: Temp Pulse Resp BP Pulse Ox 98.1 F 54 15 158/91 96 12/29/17 11:22 12/29/17 11:22 12/29/17 11:22 12/29/17 11:22 12/29/17 11:22 General appearance: Present: A&O X 3 Exam: Gen: Alert, awake, Oriented to time,place and person Chest: Diminished breath sounds B/L, No wheezing, No crackles, No rales Heart: S1S2+ RRR No murmurs Abd: Soft, NT, BS +, No organomegaly Ext: No edema, pulses are palpable, No calf tenderness Neuro : Benign findings Skin: No rash. - Patient Status Disposition: Home, Self-Care Condition: Good Overall status at discharge: patient is back to baseline - Discharge Instructions Follow Up With: Geeta Aburto CNP [Primary Care Provider] - (Your appointment has been requested) Diego Jarvis MD [Partnered Physician] - - Diet and Activity Activity: increase activity as tolerated Diet: low fat, low cholesterol, low salt diet
== END 2017-12-29 15:46 | disposition home or self-care (01) ==
LOC: 3BNU 09:35 → EMEROOARM 09:35 → 3BNU 13:51
PROVIDERS: ADMIT Internal Medicine; ATTEND Internal Medicine